=== PATIENT | male | born 1940 | race Two or more races ===

== ENCOUNTER 2016-07-11 07:48 | Day surgery (SDC) | payer OTHER ==
[~2016-07-11] VITALS: Ht 170.2 cm; Wt 74.4 kg
[~2016-07-11 07:48] MED LIST: ATOR10TA52 PO; LEVO100T8 PO
[2016-07-11] MEDS ORDERED: ceFAZolin 1GM/50ML D5W 50 ML IV ONE (08:36)
[2016-07-11] MEDS ORDERED: fentaNYL CITRATE 100 MCG/2 ML VL ONE (11:51)
[2016-07-11] MEDS ORDERED: ONDANSETRON HCL 4 MG/2 ML VIAL ONE (11:51)
[2016-07-11] MEDS ORDERED: MIDAZOLAM HCL 1MG/1ML-2 ML VIAL ONE (11:51)
[2016-07-11] MEDS ORDERED: KETOROLAC TROMETH 60MG/2ML VIAL IM ONE (11:51)
[2016-07-11] MEDS ORDERED: DEXAMETHASONE SOD PHOS 10MG/1ML VIAL INJ ONE (11:51)
[2016-07-11] MEDS ORDERED: ROCURONIUM 10MG/ML 10ML VIAL IV ONE (11:52)
[2016-07-11] MEDS ORDERED: PROPOFOL 10 MG/ML 20 ML IV ONE (11:52)
[2016-07-11] MEDS ORDERED: LIDOCAINE HCL 2 %PF INJ 10ML AMP IJ ONE (11:53)
[2016-07-11] MEDS: HYDROmorphone HCL 2 MG/ML VL IV PRN ×2 (12:41→12:51)
[2016-07-11] MEDS ORDERED: ONDANSETRON HCL 4 MG/2 ML VIAL IV ONE (14:15)
[2016-07-11 15:21] VITALS: BP 144/77
== END 2016-07-11 15:30 | disposition home or self-care (01) ==
LOC: SUR 07:48
PROVIDERS: ATTEND Urology
DX: C61 Malignant neoplasm of prostate (principal); I10 Essential (primary) hypertension; E03.9 Hypothyroidism, unspecified; E78.5 Hyperlipidemia, unspecified
CPT/HCPCS: 55873; C2618; J0690; J1100; J1170; J1885; J2250; J2405; J2704; J3010